=== PATIENT | female | born 1990 | race Caucasian/White ===

== ENCOUNTER 2017-04-28 08:49 | Emergency (ER) | payer MEDICAID ==
[~2017-04-28] VITALS: Ht 154.9 cm; Wt 95.0 kg
[~2017-04-28 08:49] MED LIST: ACET-1600 PO; CIPR500T3 PO; DIPH25CA61 PO; HYDR2TAB40 PO; IBUP800T PO; METF500T4 PO; NAPR220C2 PO; NONE PER PT; OMEP40CA6 PO; OXYC-302 PO; PANT20TA2 PO; POLY17PO5 PO; PREN1TAB60 PO; PROM25TA10 PO; TRAM50TA2 PO; VENL75TA PO
[2017-04-28] MEDS ORDERED: KETOROLAC 30 MG/1 ML IM ONE (10:00)
[2017-04-28] MEDS ORDERED: OXYcodone/APAP 5/325MG TABLET PO ONE (10:00)
[2017-04-28] MEDS ORDERED: DIAZEPAM 5 MG TABLET PO ONE (10:00)
[2017-04-28] MEDS ORDERED: KETOROLAC 30 MG/1 ML ONE (10:19)
[2017-04-28] MEDS ORDERED: DIAZEPAM 5 MG TABLET ONE (10:19)
[2017-04-28] MEDS ORDERED: OXYcodone/APAP 5/325MG TABLET ONE (10:19)
[2017-04-28 10:44] VITALS: BP 114/69
== END 2017-04-28 11:23 | disposition home or self-care (01) ==
LOC: ED 11:03
DX: M54.12 Radiculopathy, cervical region (principal)
CPT/HCPCS: 72125; 96372; 99284; J1885

== ENCOUNTER 2018-06-09 16:44 | Emergency (ER) | payer MEDICAID ==
[~2018-06-09] VITALS: Ht 154.9 cm; Wt 82.2 kg
[~2018-06-09 16:44] MED LIST changes: +IBUP-1223 PO; -IBUP800T PO; +METF500T17 PO; -METF500T4 PO
[2018-06-09] MEDS ORDERED: SODIUM CHLORIDE 0.9% 1,000ML IVBOLUS ONE (17:00)
[2018-06-09] MEDS ORDERED: SODIUM CHLORIDE FLUSH 10ML SYR IVF ONE (17:00)
[2018-06-09] MEDS ORDERED: BUTA-177 PO (17:00)
[2018-06-09] MEDS ORDERED: CHOL500015 PO (17:00)
[2018-06-09] MEDS ORDERED: ONDANSETRON ODT 4 MG PO ONE (17:00)
[2018-06-09] MEDS ORDERED: SUMA100T4 PO (17:00)
[2018-06-09] MEDS ORDERED: ACETAMINOPHEN 325 MG TABLET PO ONE (17:00)
[2018-06-09] MEDS ORDERED: KETOROLAC 30 MG/1 ML IVPush ONE (17:00)
[2018-06-09] MEDS ORDERED: DIPHENHYDRAMINE 50 MG/ML, 1ML IVPush ONE (17:00)
[2018-06-09] MEDS ORDERED: PROP20TA PO (17:00)
[2018-06-09] MEDS ORDERED: DIPHENHYDRAMINE 50 MG/ML, 1ML ONE (17:23)
[2018-06-09] MEDS ORDERED: METOCLOPRAMIDE 5 MG/ML, 2ML ONE (17:24)
[2018-06-09] MEDS ORDERED: KETOROLAC 30 MG/1 ML ONE (17:24)
[2018-06-09] MEDS ORDERED: METOCLOPRAMIDE 5 MG/ML, 2ML IVPush ONE (17:30)
[2018-06-09] MEDS ORDERED: DEXAMETHASONE 4 MG/ML, 1ML IVPush ONE (17:30)
[2018-06-09 18:12] VITALS: BP 101/54
[2018-06-09] MEDS ORDERED: DEXAMETHASONE 4 MG/ML, 1ML ONE (18:14)
[2018-06-09] MEDS ORDERED: ACETAMINOPHEN 325 MG TABLET ONE (18:14)
== END 2018-06-09 18:38 | disposition home or self-care (01) ==
LOC: ED 18:20
DX: G43.001 Migraine without aura, not intractable, with status migrainosus (principal); R11.2 Nausea with vomiting, unspecified; Z98.51 Tubal ligation status; Z90.49 Acquired absence of other specified parts of digestive tract; Z88.5 Allergy status to narcotic agent
CPT/HCPCS: 96361; 96374; 96375; 99284; J1100; J1200; J1885; J2765; J7030

== ENCOUNTER 2019-01-24 03:51 | Emergency (ER) | payer MEDICAID ==
[~2019-01-24] VITALS: Ht 154.9 cm; Wt 64.5 kg
[~2019-01-24 03:51] MED LIST changes: +BUTA-177 PO; +CHOL500015 PO; +PROP20TA PO; +SUMA100T4 PO
[2019-01-24 04:30] LABS: CULTURE INDICATED? NO; MICROSCOPIC AUTO
[2019-01-24] MEDS ORDERED: PHENAZOPYRIDINE 200 MG TABLET PO ONE (04:30)
[2019-01-24] MEDS ORDERED: KETOROLAC 30 MG/1 ML IM ONE (04:30)
[2019-01-24] MEDS ORDERED: PHENAZOPYRIDINE 200 MG TABLET ONE (04:31)
[2019-01-24] MEDS ORDERED: KETOROLAC 30 MG/1 ML ONE (04:31)
--- NOTE | 2019-01-24 04:40 | NUR ---
assessment made. seen by DEVYN. IV placed. blood drawn, urine sample obtained and sent to lab. medicated for pain.
--- NOTE | 2019-01-24 04:40 | NUR ---
bedside commode provided. urinary frequency noted.
[2019-01-24 04:41] LABS: BASOPHILS # (AUTO) 0.01 x10^3/uL (0-0.1); BASOPHILS % (AUTO) 0 % (0-1); EOSINOPHILS # (AUTO) 0.01 x10^3/uL (0-0.4); EOSINOPHILS % (AUTO) 0 % (1-7); LYMPHOCYTES # (AUTO) 0.79 x10^3/uL (1-3.4); LYMPHOCYTES % (AUTO) 9 % (22-44); MD NO; MEAN CORPUSCULAR HEMOGLOBIN 31.4 pg (27.0-34.8); MEAN CORPUSCULAR HGB CONC 32.9 g/dL (32.4-35.8); MEAN CORPUSCULAR VOLUME 95.4 fL (80-100); MEAN PLATELET VOLUME 10.3 fL (7.4-10.4); MONOCYTES # (AUTO) 0.27 x10^3/uL (0.2-0.8); MONOCYTES % (AUTO) 3 % (2-9); NEUTROPHILS # (AUTO) 7.57 x10^3/uL (1.8-6.8); NEUTROPHILS % (AUTO) 88 % (42-75); PLATELET COUNT 162 x10^3/uL (130-400); RED BLOOD COUNT 4.46 x10^6/uL (3.82-5.3); RED CELL DISTRIBUTION WIDTH 13.9 % (9.6-15.2)
[2019-01-24 04:50] LABS: ALBUMIN 3.9 g/dL (3.4-5.0); ANION GAP 7 mmol/L (5-15); CALCIUM 8.2 mg/dL (8.5-10.1); CHLORIDE 117 mmol/L (98-107)
[2019-01-24 04:54] LABS: ALANINE AMINOTRANSFERASE 141 U/L (12-78); ALKALINE PHOSPHATASE 129 U/L (45-117); BILIRUBIN,TOTAL 0.3 mg/dL (0.2-1.0); CREATININE 0.79 mg/dL (0.55-1.02); TOTAL PROTEIN 7.2 g/dL (6.4-8.2)
--- NOTE | 2019-01-24 05:07 | NUR ---
patient still in pain, in position in gurney.
[2019-01-24] MEDS ORDERED: HYDROmorphone 2 MG/ML, 1ML ONE (05:11)
--- NOTE | 2019-01-24 05:14 | NUR ---
re-medicated for pain. patient to CT scan.
[2019-01-24] MEDS ORDERED: OMNIPAQUE 350 MG/ML, 100ML BOTTLE ONE (05:28)
[2019-01-24] MEDS ORDERED: HYDROmorphone 2 MG/ML, 1ML IVPush PRN (05:30)
[2019-01-24] MEDS ORDERED: ONDANSETRON 2MG/ML, 2ML IVPush ONE (05:30)
--- NOTE | 2019-01-24 05:30 | NUR ---
back from CT scan. awaiting result.
--- NOTE | 2019-01-24 05:52 | NUR ---
patient sleeping at this time.
--- NOTE | 2019-01-24 06:45 | NUR ---
ERP at bedside for re-evaluation.
[2019-01-24 07:07] VITALS: BP 103/66
== END 2019-01-24 07:18 | disposition home or self-care (01) ==
LOC: ED 06:50
DX: R10.30 Lower abdominal pain, unspecified (principal); G43.909 Migraine, unspecified, not intractable, without status migrainosus
CPT/HCPCS: 36415; 74177; 80053; 81001; 85025; 96372; 96374; 99284; J1170; J1885; Q9967

== ENCOUNTER 2019-02-04 16:07 | Emergency (ER) | payer MEDICAID ==
[~2019-02-04] VITALS: Ht 154.9 cm; Wt 64.5 kg
[2019-02-04] MEDS ORDERED: CITA10TA8 PO (16:17)
[2019-02-04] MEDS ORDERED: TAMS-11 PO (16:17)
--- NOTE | 2019-02-04 16:18 | NUR ---
PATIENT BIB [facility] FROM [facility] AFTER PROCEDURE FOR INJECTIONS FOR MUSCLE SPASMS (THORACIC TRIGGER POINT INJECTIONS), PATIENT STARTED HAVING SOB AND RT SIDED CP UNDER RT BREAST RADIATING TO BACK, FENTANYL AND ZOFRAN GIVEN EN ROUTE, SEEING UROLOGIST FOR URINARY RETENTION, SELF CATHS PER EMS. IS ANALYST ON PATIENT, AWAITING MD ORDERS, CALL LIGHT WITHIN REACH.
--- NOTE | 2019-02-04 16:21 | NUR ---
PATIENT TO XRAY VIA NADN. Vladimir [id number].
[2019-02-04 17:11] VITALS: BP 106/67
--- NOTE | 2019-02-04 17:11 | NUR ---
Patient/Caregiver given discharge instructions and they have confirmed that they understand the instructions. Patient ambulatory with steady gait.
== END 2019-02-04 17:14 | disposition home or self-care (01) ==
LOC: ED 17:03
DX: R07.89 Other chest pain (principal)
CPT/HCPCS: 71046; 93005; 99283

== ENCOUNTER 2020-06-22 10:08 | Emergency (ER) | payer MEDICAID ==
[~2020-06-22] VITALS: Ht 154.9 cm; Wt 55.4 kg
[~2020-06-22 10:08] MED LIST changes: +CITA10TA8 PO; +OMEP40CA42 PO; -OMEP40CA6 PO; +ONDA4VIA60 PO; +SULF1TAB23 PO; +TAMS-11 PO
[2020-06-22] MEDS ORDERED: DIPHENHYDRAMINE 50 MG/ML, 1ML IVPush ONE (10:30)
[2020-06-22] MEDS ORDERED: SODIUM CHLORIDE 0.9% 1,000 ML IV ONE (10:30)
[2020-06-22] MEDS ORDERED: PROCHLORPERAZINE 5 MG/ML, 2ML IVPush ONE (10:30)
[2020-06-22] MEDS ORDERED: DIPHENHYDRAMINE 50 MG/ML, 1ML ONE (10:40)
[2020-06-22] MEDS ORDERED: PROCHLORPERAZINE 5 MG/ML, 2ML ONE (10:40)
[2020-06-22 10:55] LABS: BASOPHILS % (AUTO) 1 % (0-1); EOSINOPHILS % (AUTO) 1 % (1-7); LYMPHOCYTES % (AUTO) 19 % (22-44); MD NO; MEAN CORPUSCULAR HEMOGLOBIN 31.5 pg (27.0-34.8); MEAN CORPUSCULAR HGB CONC 32.8 g/dL (32.4-35.8); MONOCYTES % (AUTO) 6 % (2-9); NEUTROPHILS % (AUTO) 74 % (42-75); PLATELET COUNT 187 x10^3/uL (130-400); RED BLOOD COUNT 4.45 x10^6/uL (3.82-5.3); RED CELL DISTRIBUTION WIDTH 13.1 % (9.6-15.2)
[2020-06-22 11:05] LABS: ALBUMIN 3.5 g/dL (3.4-5.0); ANION GAP 4 mmol/L (5-15); CALCIUM 8.6 mg/dL (8.5-10.1); CHLORIDE 116 mmol/L (98-107); CREATININE 0.77 mg/dL (0.55-1.02)
--- NOTE | 2020-06-22 11:09 | NUR ---
RECEIVED REPORT FROM FRANK WILKINS. ASSUMING CARE AT THIS TIME. PT AT CT.
--- NOTE | 2020-06-22 11:09 | NUR ---
PT CAME IN BECAUSE SHE WAS HAVING A MIGRAINE MURRAY WHEN "I MUST HAVE SLIPPED AND FALLEN DOWN THE STAIRS. I DONT EXCATLY REMEMBER WHAT HAPPENED. I WOKE UP AND MY BROTHER WAS STANDING OVER ME." PT CO OF MURRAY AND NECK PAIN. DENIES BLOOD THINNERS. IV FLUIDS INFUSING. PT MEDICATED PER MAR. PT TO CT AT THIS TIME
--- NOTE | 2020-06-22 11:36 | NUR ---
ALL RESULTS ARE BACK AT THIS TIME. CHART UP FOR RECHECK.
[2020-06-22 11:38] VITALS: BP 94/55
== END 2020-06-22 12:25 | disposition home or self-care (01) ==
LOC: ED 10:34
DX: G43.109 Migraine with aura, not intractable, without status migrainosus (principal); R55 Syncope and collapse; I51.7 Cardiomegaly
CPT/HCPCS: 36415; 70450; 80048; 82040; 85025; 93005; 96361; 96374; 96375; 99285; J0780; J1200; J7030

== ENCOUNTER 2020-10-03 21:38 | Inpatient (IN) | payer MEDICAID ==
[~2020-10-03] VITALS: Ht 152.4 cm; Wt 56.9 kg
[~2020-10-03 21:38] MED LIST changes: -OXYC-302 PO; +OXYC1TAB14 PO
[2020-10-03] MEDS ORDERED: ONDANSETRON 2MG/ML, 2ML ONE (22:27)
[2020-10-03] MEDS ORDERED: HYDROmorphone 1 MG/ML, 1ML INJ ONE ×2 (22:27→23:30)
[2020-10-03] MEDS ORDERED: SODIUM CHLORIDE FLUSH 10ML SYR IVF ONE (22:30)
[2020-10-03] MEDS ORDERED: SODIUM CHLORIDE 0.9% 1,000ML IVBOLUS ONE (22:30)
[2020-10-03] MEDS ORDERED: ONDANSETRON 2MG/ML, 2ML IVPush ONE (22:30)
[2020-10-03 22:33] LABS: BASOPHILS % (AUTO) 1 % (0-1); EOSINOPHILS % (AUTO) 1 % (1-7); LYMPHOCYTES % (AUTO) 41 % (22-44); MEAN CORPUSCULAR HEMOGLOBIN 32.1 pg (27.0-34.8); MEAN CORPUSCULAR HGB CONC 33.7 g/dL (32.4-35.8); MEAN PLATELET VOLUME 9.2 fL (7.4-10.4); MONOCYTES % (AUTO) 8 % (2-9); NEUTROPHILS % (AUTO) 50 % (42-75); PLATELET COUNT 145 x10^3/uL (130-400); RED BLOOD COUNT 4.23 x10^6/uL (3.82-5.3); RED CELL DISTRIBUTION WIDTH 12.4 % (9.6-15.2)
[2020-10-03 22:40] LABS: MD NO
[2020-10-03 22:42] LABS: ALANINE AMINOTRANSFERASE 63 U/L (12-78); ALBUMIN 3.5 g/dL (3.4-5.0); ANION GAP 2 mmol/L (5-15); CHLORIDE 116 mmol/L (98-107); CREATININE 0.73 mg/dL (0.55-1.02)
[2020-10-03] MEDS: HYDROmorphone 1 MG/ML, 1ML INJ IVPush PRN ×2 (22:43→23:35)
[2020-10-03 22:47] LABS: ALKALINE PHOSPHATASE 124 U/L (45-117); BILIRUBIN,TOTAL 0.4 mg/dL (0.2-1.0); TOTAL PROTEIN 6.7 g/dL (6.4-8.2)
[2020-10-03] MEDS ORDERED: OMNIPAQUE 350 MG/ML, 100ML BOTTLE ONE (23:45)
[2020-10-03] MEDS ORDERED: DIPHENHYDRAMINE 50 MG/ML, 1ML ONE (23:51)
--- NOTE | 2020-10-04 00:06 | NUR ---
Pt reports feeling itchy after IV contrast administration. Pt also has hives and rashes around chest area. pt denies any SOB or throat swelling. Lungs bilaterally clear. Benedryl administered.
[2020-10-04 00:20] LABS: MICROSCOPIC NOT IND
[2020-10-04] MEDS ORDERED: DIPHENHYDRAMINE 50 MG/ML, 1ML IVPush ONE ×4 (00:30→08:30)
[2020-10-04] MEDS ORDERED: ASA/APAP/ CAFFEINE TABLET PO PRN (01:30)
[2020-10-04] MEDS ORDERED: ENALAPRILAT 1.25 MG/ML, 2ML IVPush PRN (01:30)
[2020-10-04] MEDS ORDERED: DIPHENHYDRAMINE 50 MG/ML, 1ML ONE (01:58)
[2020-10-04] MEDS: HYDROmorphone 2 MG/ML, 1ML IVPush PRN ×9 (02:22→21:34)
[2020-10-04] MEDS: LORazepam 2 MG/ML, 1ML IVPush PRN (02:24)
[2020-10-04] MEDS: ENOXAPARIN 40 MG/0.4 ML SQ SCH (02:24)
[2020-10-04] MEDS: D5%-0.45NACL+KCL 20MEQ 1,000 ML IV SCH ×2 (02:42→13:08)
[2020-10-04] MEDS: ONDANSETRON 2MG/ML, 2ML IVPush PRN (02:54)
[2020-10-04 02:59] VITALS: BP 115/76
[2020-10-04 07:45] VITALS: BP 102/66
[2020-10-04] MEDS: FAMOTIDINE 20 MG/2 ML IVPush SCH ×2 (08:28→21:18)
[2020-10-04 10:45] LABS: BASOPHILS % (AUTO) 0 % (0-1); EOSINOPHILS % (AUTO) 1 % (1-7); LYMPHOCYTES % (AUTO) 19 % (22-44); MEAN CORPUSCULAR HEMOGLOBIN 32.1 pg (27.0-34.8); MEAN CORPUSCULAR HGB CONC 33.5 g/dL (32.4-35.8); MEAN PLATELET VOLUME 8.8 fL (7.4-10.4); MONOCYTES % (AUTO) 8 % (2-9); NEUTROPHILS % (AUTO) 72 % (42-75); PLATELET COUNT 135 x10^3/uL (130-400); RED BLOOD COUNT 3.99 x10^6/uL (3.82-5.3); RED CELL DISTRIBUTION WIDTH 12.8 % (9.6-15.2)
[2020-10-04 10:50] LABS: MD NO
[2020-10-04 10:55] LABS: ALBUMIN 3.2 g/dL (3.4-5.0); ANION GAP 4 mmol/L (5-15); CALCIUM 7.6 mg/dL (8.5-10.1); CHLORIDE 112 mmol/L (98-107)
[2020-10-04 11:00] LABS: ALANINE AMINOTRANSFERASE 406 U/L (12-78); ALKALINE PHOSPHATASE 278 U/L (45-117); BILIRUBIN,TOTAL 0.8 mg/dL (0.2-1.0); TOTAL PROTEIN 5.9 g/dL (6.4-8.2)
[2020-10-04] MEDS: METOCLOPRAMIDE 5 MG/ML, 2ML IVPush PRN ×2 (13:08→21:29)
[2020-10-04 13:16] VITALS: BP 102/64
[2020-10-04 19:21] VITALS: BP 112/75
[2020-10-05] MEDS: LORazepam 2 MG/ML, 1ML IVPush PRN ×2 (00:22→20:41)
[2020-10-05] MEDS: D5%-0.45NACL+KCL 20MEQ 1,000 ML IV SCH ×2 (00:22→11:15)
[2020-10-05 00:40] VITALS: BP 118/81
[2020-10-05] MEDS: ENOXAPARIN 40 MG/0.4 ML SQ SCH (02:34)
[2020-10-05] MEDS: HYDROmorphone 2 MG/ML, 1ML IVPush PRN ×6 (02:53→23:18)
[2020-10-05 06:51] LABS: BASOPHILS % (AUTO) 1 % (0-1); EOSINOPHILS % (AUTO) 4 % (1-7); LYMPHOCYTES % (AUTO) 26 % (22-44); MEAN CORPUSCULAR HEMOGLOBIN 32.2 pg (27.0-34.8); MEAN CORPUSCULAR HGB CONC 33.4 g/dL (32.4-35.8); MEAN PLATELET VOLUME 8.9 fL (7.4-10.4); MONOCYTES % (AUTO) 7 % (2-9); NEUTROPHILS % (AUTO) 63 % (42-75); PLATELET COUNT 129 x10^3/uL (130-400); RED BLOOD COUNT 3.98 x10^6/uL (3.82-5.3); RED CELL DISTRIBUTION WIDTH 12.5 % (9.6-15.2)
[2020-10-05 06:53] LABS: MD NO
[2020-10-05 07:02] LABS: ALBUMIN 2.9 g/dL (3.4-5.0); ANION GAP 2 mmol/L (5-15); CALCIUM 7.8 mg/dL (8.5-10.1); CHLORIDE 111 mmol/L (98-107)
[2020-10-05 07:06] LABS: ALANINE AMINOTRANSFERASE 306 U/L (12-78); ALKALINE PHOSPHATASE 269 U/L (45-117); BILIRUBIN,TOTAL 0.6 mg/dL (0.2-1.0); CREATININE 0.75 mg/dL (0.55-1.02); TOTAL PROTEIN 5.6 g/dL (6.4-8.2)
[2020-10-05 07:16] VITALS: BP 121/85
[2020-10-05] MEDS: FAMOTIDINE 20 MG/2 ML IVPush SCH ×2 (07:39→20:42)
[2020-10-05] MEDS: ONDANSETRON 2MG/ML, 2ML IVPush PRN (10:51)
[2020-10-05] MEDS ORDERED: DIPHENHYDRAMINE 50 MG/ML, 1ML IVPush PRN (12:00)
[2020-10-05 12:54] VITALS: BP 109/73
[2020-10-05] MEDS: METOCLOPRAMIDE 5 MG/ML, 2ML IVPush PRN ×2 (13:24→20:42)
[2020-10-05 18:29] VITALS: BP 108/73
[2020-10-06 00:59] VITALS: BP 95/63
[2020-10-06] MEDS: D5%-0.45NACL+KCL 20MEQ 1,000 ML IV SCH (02:14)
[2020-10-06] MEDS: HYDROmorphone 2 MG/ML, 1ML IVPush PRN (03:27)
[2020-10-06] MEDS: ENOXAPARIN 40 MG/0.4 ML SQ SCH (05:30)
[2020-10-06 07:10] LABS: BASOPHILS % (AUTO) 1 % (0-1); EOSINOPHILS % (AUTO) 4 % (1-7); LYMPHOCYTES % (AUTO) 23 % (22-44); MEAN CORPUSCULAR HEMOGLOBIN 32.4 pg (27.0-34.8); MEAN CORPUSCULAR HGB CONC 33.8 g/dL (32.4-35.8); MONOCYTES % (AUTO) 7 % (2-9); NEUTROPHILS % (AUTO) 66 % (42-75); PLATELET COUNT 137 x10^3/uL (130-400); RED BLOOD COUNT 4.19 x10^6/uL (3.82-5.3); RED CELL DISTRIBUTION WIDTH 12.5 % (9.6-15.2)
[2020-10-06 07:11] LABS: MD NO
[2020-10-06 07:12] LABS: ANION GAP 5 mmol/L (5-15); CALCIUM 8.5 mg/dL (8.5-10.1); CHLORIDE 109 mmol/L (98-107); CREATININE 0.61 mg/dL (0.55-1.02)
[2020-10-06] MEDS ORDERED: OXYcodone/APAP 5/325MG TABLET PO PRN (08:00)
[2020-10-06] MEDS: FAMOTIDINE 20 MG/2 ML IVPush SCH (08:06)
[2020-10-06 08:52] VITALS: BP 109/73
[2020-10-06] MEDS ORDERED: OXYC1TAB14 PO (09:48)
== END 2020-10-06 11:40 | disposition home or self-care (01) | DRG 392 ==
LOC: ED 23:01 → EDIP 10-04 01:18 → 3N 10-04 02:15 → DCLOUNGE 10-06 11:34
PROVIDERS: ADMIT Family Medicine; ATTEND Family Medicine
DX: K52.9 Noninfective gastroenteritis and colitis, unspecified (principal); E46 Unspecified protein-calorie malnutrition; K56.7 Ileus, unspecified; N39.0 Urinary tract infection, site not specified; G43.909 Migraine, unspecified, not intractable, without status migrainosus; E86.0 Dehydration; E83.51 Hypocalcemia; E10.9 Type 1 diabetes mellitus without complications; Z80.0 Family history of malignant neoplasm of digestive organs; Z82.49 Family history of ischemic heart disease and other diseases of the circulatory system; F41.9 Anxiety disorder, unspecified; L29.9 Pruritus, unspecified; Z90.49 Acquired absence of other specified parts of digestive tract; Z90.711 Acquired absence of uterus with remaining cervical stump; Z98.84 Bariatric surgery status; Z88.8 Allergy status to other drugs, medicaments and biological substances; Z88.6 Allergy status to analgesic agent; Z91.041 Radiographic dye allergy status; Z68.24 Body mass index [BMI] 24.0-24.9, adult
CPT/HCPCS: 36415; 74018; 74177; 76700; 80048; 80053; 81003; 82150; 82330; 83605; 83690; 84703; 85025; 86140; 99285; G0378; J1170; J1650; J2405; Q9967; J1200; J2060; J2765; J3480; J7030

== ENCOUNTER 2020-10-17 08:31 | Emergency (ER) | payer MEDICAID ==
[~2020-10-17] VITALS: Ht 154.9 cm; Wt 54.6 kg
[~2020-10-17 08:31] MED LIST changes: -CIPR500T3 PO; +CIPR500T4 PO
[2020-10-17] MEDS ORDERED: ONDANSETRON 2MG/ML, 2ML IVPush ONE (09:00)
[2020-10-17] MEDS ORDERED: FENTANYL PF 100 MCG/2ML IV ONE (09:00)
[2020-10-17] MEDS ORDERED: SODIUM CHLORIDE FLUSH 10ML SYR IVF ONE (09:00)
[2020-10-17] MEDS ORDERED: ONDANSETRON 2MG/ML, 2ML ONE (09:05)
[2020-10-17] MEDS ORDERED: FENTANYL PF 100 MCG/2ML ONE (09:05)
--- NOTE | 2020-10-17 09:13 | NUR ---
Pt states she has spasmotic pain in her abd. Followed up with her PCP after d/c from the hospital for bowel obstruction 2 weeks ago and was told to come to the ER. On her last visit she was informed that if she had another bowel obsturction she would need sx to "remove the scar tissue." Pt has been NPO since midnight. Pt medicated to MAR, unfamilliar with Fentynal, asked about Dilaudid, educated about Fentynal and informed of current orders. Pt to imaging now.
[2020-10-17 09:25] LABS: BASOPHILS % (AUTO) 1 % (0-1); EOSINOPHILS % (AUTO) 1 % (1-7); LYMPHOCYTES % (AUTO) 18 % (22-44); MEAN CORPUSCULAR HGB CONC 33.3 g/dL (32.4-35.8); MEAN PLATELET VOLUME 9.2 fL (7.4-10.4); MONOCYTES % (AUTO) 7 % (2-9); NEUTROPHILS % (AUTO) 72 % (42-75); PLATELET COUNT 160 x10^3/uL (130-400); RED BLOOD COUNT 4.27 x10^6/uL (3.82-5.3); RED CELL DISTRIBUTION WIDTH 12.7 % (9.6-15.2)
[2020-10-17 09:26] LABS: ALANINE AMINOTRANSFERASE 87 U/L (12-78); ALBUMIN 3.5 g/dL (3.4-5.0); ANION GAP 5 mmol/L (5-15); CALCIUM 7.9 mg/dL (8.5-10.1); CHLORIDE 115 mmol/L (98-107); CREATININE 0.84 mg/dL (0.55-1.02)
[2020-10-17 09:28] LABS: ALKALINE PHOSPHATASE 196 U/L (45-117); BILIRUBIN,TOTAL 0.3 mg/dL (0.2-1.0); MD NO; TOTAL PROTEIN 6.3 g/dL (6.4-8.2)
[2020-10-17] MEDS ORDERED: DIPHENHYDRAMINE 50 MG/ML, 1ML ONE (10:21)
[2020-10-17] MEDS ORDERED: DIPHENHYDRAMINE 50 MG/ML, 1ML IVPush ONE (10:30)
--- NOTE | 2020-10-17 10:33 | NUR ---
Pt to CT.
[2020-10-17 10:40] LABS: MICROSCOPIC INDICATED
[2020-10-17] MEDS ORDERED: OMNIPAQUE 350 MG/ML, 100ML BOTTLE ONE (10:51)
--- NOTE | 2020-10-17 11:13 | NUR ---
Pt has been passing gas. Pt sleeping, visible chest rise and fall.
[2020-10-17 12:40] VITALS: BP 128/78
== END 2020-10-17 12:42 | disposition home or self-care (01) ==
LOC: ED 10:09
DX: K59.00 Constipation, unspecified (principal); R10.84 Generalized abdominal pain; R11.2 Nausea with vomiting, unspecified
CPT/HCPCS: 36415; 74022; 74177; 80053; 81001; 83690; 85025; 96374; 96375; 99285; J1200; J2405; J3010; Q9967

== ENCOUNTER 2020-11-10 14:18 | Emergency (ER) | payer MEDICAID ==
[~2020-11-10] VITALS: Ht 165.1 cm; Wt 55.7 kg
--- NOTE | 2020-11-10 14:25 | NUR ---
PT WHEELED FROM TRIAGE TO ROOM AT THIS TIME.
[2020-11-10 15:53] LABS: BASOPHILS % (AUTO) 1 % (0-1); EOSINOPHILS % (AUTO) 1 % (1-7); LYMPHOCYTES % (AUTO) 25 % (22-44); MEAN CORPUSCULAR HGB CONC 33.6 g/dL (32.4-35.8); MEAN PLATELET VOLUME 9.6 fL (7.4-10.4); MONOCYTES % (AUTO) 5 % (2-9); NEUTROPHILS % (AUTO) 69 % (42-75); PLATELET COUNT 158 x10^3/uL (130-400); RED BLOOD COUNT 4.75 x10^6/uL (3.82-5.3); RED CELL DISTRIBUTION WIDTH 12.8 % (9.6-15.2)
[2020-11-10 15:57] LABS: MD NO
[2020-11-10 16:00] LABS: ALANINE AMINOTRANSFERASE 119 U/L (12-78); ANION GAP 5 mmol/L (5-15); CALCIUM 8.4 mg/dL (8.5-10.1); CHLORIDE 117 mmol/L (98-107); CREATININE 0.77 mg/dL (0.55-1.02)
[2020-11-10 16:03] LABS: ALKALINE PHOSPHATASE 134 U/L (45-117); BILIRUBIN,TOTAL 0.3 mg/dL (0.2-1.0); TOTAL PROTEIN 7.2 g/dL (6.4-8.2)
[2020-11-10] MEDS ORDERED: KETOROLAC 30 MG/1 ML ONE (16:45)
[2020-11-10] MEDS ORDERED: ONDANSETRON 2MG/ML, 2ML ONE (16:46)
[2020-11-10 16:55] LABS: MICROSCOPIC AUTO
[2020-11-10] MEDS ORDERED: ONDANSETRON 2MG/ML, 2ML IVPush ONE (17:00)
[2020-11-10] MEDS ORDERED: KETOROLAC 30 MG/1 ML IVPush ONE (17:00)
--- NOTE | 2020-11-10 18:50 | NUR ---
report from brandon núñez, pt care transferred at this time
[2020-11-10 19:16] VITALS: BP 119/63
--- NOTE | 2020-11-10 19:17 | NUR ---
Patient given discharge instructions and they have confirmed that they understand the instructions. Patient ambulatory with steady gait. nad, all questions answered appropriately, denies additional needs, pt instructed on urinary cath care and provided leg bags and fresh urine bag. no personal belongings left in room after dc.
== END 2020-11-10 19:34 | disposition home or self-care (01) ==
LOC: ED 15:12
DX: R10.84 Generalized abdominal pain (principal); R14.0 Abdominal distension (gaseous); K59.00 Constipation, unspecified; R33.9 Retention of urine, unspecified; R94.5 Abnormal results of liver function studies; Z90.49 Acquired absence of other specified parts of digestive tract; Z98.51 Tubal ligation status; Z90.710 Acquired absence of both cervix and uterus; Z88.5 Allergy status to narcotic agent; Z88.6 Allergy status to analgesic agent
CPT/HCPCS: 36415; 51702; 74021; 76770; 80053; 81001; 85025; 87077; 87086; 96374; 96375; 99285; J1885; J2405; 87186

== ENCOUNTER 2020-11-11 21:27 | Emergency (ER) | payer MEDICAID ==
[~2020-11-11] VITALS: Ht 157.5 cm; Wt 55.0 kg
--- NOTE | 2020-11-11 22:41 | NUR ---
ropeman: pt from lobby to room 14
[2020-11-11 23:03] LABS: MICROSCOPIC AUTO
[2020-11-11 23:28] LABS: ALANINE AMINOTRANSFERASE 92 U/L (12-78); ALBUMIN 3.7 g/dL (3.4-5.0); ANION GAP 5 mmol/L (5-15); CALCIUM 8.1 mg/dL (8.5-10.1); CHLORIDE 115 mmol/L (98-107)
[2020-11-11 23:30] LABS: ALKALINE PHOSPHATASE 128 U/L (45-117); BILIRUBIN,TOTAL 0.5 mg/dL (0.2-1.0); TOTAL PROTEIN 6.9 g/dL (6.4-8.2)
[2020-11-11 23:36] LABS: BASOPHILS % (AUTO) 0 % (0-1); EOSINOPHILS % (AUTO) 1 % (1-7); LYMPHOCYTES % (AUTO) 23 % (22-44); MEAN CORPUSCULAR HEMOGLOBIN 32.1 pg (27.0-34.8); MEAN CORPUSCULAR HGB CONC 33.1 g/dL (32.4-35.8); MEAN PLATELET VOLUME 9.2 fL (7.4-10.4); MONOCYTES % (AUTO) 6 % (2-9); NEUTROPHILS % (AUTO) 69 % (42-75); PLATELET COUNT 158 x10^3/uL (130-400); RED CELL DISTRIBUTION WIDTH 12.9 % (9.6-15.2)
[2020-11-11 23:37] LABS: CLOSTRIDIUM DIFFICILE ANTIGEN NEGATIVE; CLOSTRIDIUM DIFFICILE TOXIN NEGATIVE (Negative)
[2020-11-11 23:37] LABS: MD NO
--- NOTE | 2020-11-11 23:45 | NUR ---
bladder scan =[id number]
--- NOTE | 2020-11-11 23:46 | NUR ---
Pt calm in bed. Warm blanket given. Pt states no needs at this time.
[2020-11-12] MEDS ORDERED: PHENAZOPYRIDINE 200 MG TABLET PO ONE
[2020-11-12] MEDS ORDERED: CEFDINIR 300 MG CAPSULE PO ONE
[2020-11-12] MEDS ORDERED: CEFDINIR 300 MG CAPSULE ONE (00:06)
[2020-11-12] MEDS ORDERED: PHENAZOPYRIDINE 200 MG TABLET ONE (00:06)
[2020-11-12 00:08] VITALS: BP 117/74
== END 2020-11-12 00:13 | disposition home or self-care (01) ==
LOC: ED 23:55
DX: N30.01 Acute cystitis with hematuria (principal); R30.0 Dysuria; R10.30 Lower abdominal pain, unspecified; G43.909 Migraine, unspecified, not intractable, without status migrainosus; Z90.49 Acquired absence of other specified parts of digestive tract; Z98.51 Tubal ligation status; Z90.710 Acquired absence of both cervix and uterus
CPT/HCPCS: 36415; 80053; 81001; 83690; 85025; 87077; 87086; 87186; 87324; 89055; 99284

== ENCOUNTER 2020-11-30 19:20 | Emergency (ER) | payer MEDICAID ==
[~2020-11-30] VITALS: Ht 154.9 cm; Wt 56.4 kg
--- NOTE | 2020-11-30 20:00 | NUR ---
patient resting in bed with distended abdomen. VS remain stable on RA. patient states that she is not able to urinate on her own and would need to straight cath. call colunga in reach. safety maintained. Jihan SHEPARD at bedside
--- NOTE | 2020-11-30 20:47 | NUR ---
patient provided straight cath supplies as she opted to straight cath herself for UA sample. steady gait to bathroom. sterile gloves in patient's sive provided as the gloves in kit are too large.
[2020-11-30 20:53] LABS: BASOPHILS % (AUTO) 1 % (0-1); EOSINOPHILS % (AUTO) 1 % (1-7); LYMPHOCYTES % (AUTO) 25 % (22-44); MD NO; MEAN CORPUSCULAR HEMOGLOBIN 32.6 pg (27.0-34.8); MEAN CORPUSCULAR HGB CONC 33.9 g/dL (32.4-35.8); MEAN PLATELET VOLUME 8.9 fL (7.4-10.4); MONOCYTES % (AUTO) 8 % (2-9); NEUTROPHILS % (AUTO) 66 % (42-75); PLATELET COUNT 161 x10^3/uL (130-400); RED BLOOD COUNT 4.11 x10^6/uL (3.82-5.3); RED CELL DISTRIBUTION WIDTH 12.8 % (9.6-15.2)
[2020-11-30 20:58] LABS: ALANINE AMINOTRANSFERASE 58 U/L (12-78); ALBUMIN 3.4 g/dL (3.4-5.0); ANION GAP 3 mmol/L (5-15); CHLORIDE 115 mmol/L (98-107); CREATININE 0.78 mg/dL (0.55-1.02)
[2020-11-30] MEDS ORDERED: SUMA50TA4 PO (21:00)
[2020-11-30] MEDS ORDERED: PHEN100T90 PO (21:00)
[2020-11-30] MEDS ORDERED: GALC120S IM (21:00)
[2020-11-30 21:01] LABS: ALKALINE PHOSPHATASE 111 U/L (45-117); BILIRUBIN,TOTAL 0.2 mg/dL (0.2-1.0); TOTAL PROTEIN 6.3 g/dL (6.4-8.2)
[2020-11-30] MEDS ORDERED: ONDANSETRON ODT 4 MG ONE (21:07)
[2020-11-30 21:16] LABS: MICROSCOPIC AUTO
[2020-11-30] MEDS ORDERED: ONDANSETRON ODT 4 MG PO ONE (21:30)
[2020-11-30 21:52] VITALS: BP_DIAS 81
--- NOTE | 2020-11-30 22:04 | NUR ---
patient states that nausea has decreased after zofran. will continue to monitor. Vs remain stable.
--- NOTE | 2020-11-30 23:04 | NUR ---
patient resting in bed, tearful. she declines any type of narcotics for pain management and unable to take NSAIDS due to gastric surgery. requested warm blanket to place on distended abdomen for non-pharm pain management. this was provided. call colunga in reach. safety maintained. VS remain stable
--- NOTE | 2020-11-30 23:09 | NUR ---
po challenge initiated
--- NOTE | 2020-11-30 23:49 | NUR ---
patient tolerated small amount of PO fluids but reports she is nauseous with this. patient states "ill just take some reglan and go home. im done with this. its a game they are playing". patient states that she does not want to stay in the hospital at this time.
--- NOTE | 2020-12-01 00:09 | NUR ---
patient continues to be tearful on RN entering room. discharge instructions reviewed with patient. no further questions. prescriptions handed directly to patient. steady gait to lobby. no IV placed during this ER visit. all personal belongings with patient on dc.
[2020-12-01 00:12] VITALS: BP_SYST 139
== END 2020-12-01 00:15 | disposition home or self-care (01) ==
LOC: ED 21:07
DX: N39.0 Urinary tract infection, site not specified (principal); K59.00 Constipation, unspecified; R50.9 Fever, unspecified; G89.29 Other chronic pain; R10.13 Epigastric pain; R00.0 Tachycardia, unspecified; R11.2 Nausea with vomiting, unspecified; G43.909 Migraine, unspecified, not intractable, without status migrainosus; Z90.49 Acquired absence of other specified parts of digestive tract; Z98.51 Tubal ligation status; Z90.710 Acquired absence of both cervix and uterus
CPT/HCPCS: 36415; 74021; 80053; 81001; 85025; 87077; 87086; 87186; 99284; Q0162

== ENCOUNTER 2020-12-20 06:29 | Day surgery (SDC) | payer MEDICAID ==
[~2020-12-20] VITALS: Ht 154.9 cm; Wt 54.1 kg
[~2020-12-20 06:29] MED LIST changes: +GALC120S IM; +PHEN100T90 PO; +SUMA50TA4 PO
[2020-12-20] MEDS ORDERED: NONE PER PT (06:49)
[2020-12-20 06:51] VITALS: BP 123/75
[2020-12-20] MEDS ORDERED: CHLORHEXIDINE 15 ML UDC PO ONE (07:00)
[2020-12-20] MEDS ORDERED: LACTATED RINGERS 1,000 ML IV SCH (07:00)
[2020-12-20] MEDS ORDERED: OMEP-110 PO (09:03)
== END 2020-12-20 10:30 | disposition home or self-care (01) ==
LOC: OUT 06:29
PROVIDERS: ATTEND Internal Medicine Gastroenterology
DX: R13.10 Dysphagia, unspecified (principal); K59.00 Constipation, unspecified; K64.1 Second degree hemorrhoids; K29.70 Gastritis, unspecified, without bleeding; Z20.822 Contact with and (suspected) exposure to COVID-19; Z88.5 Allergy status to narcotic agent
CPT/HCPCS: 43239; 43248; 45380; 88305; 88342; J7120; U0003

== ENCOUNTER 2021-01-27 12:13 | Emergency (ER) | payer MEDICAID, OTHER ==
[~2021-01-27] VITALS: Ht 154.9 cm; Wt 50.0 kg
[~2021-01-27 12:13] MED LIST changes: +OMEP-110 PO
[2021-01-27 12:59] LABS: BASOPHILS % (AUTO) 0 % (0-1); EOSINOPHILS % (AUTO) 1 % (1-7); LYMPHOCYTES % (AUTO) 16 % (22-44); MEAN CORPUSCULAR HEMOGLOBIN 32.3 pg (27.0-34.8); MEAN CORPUSCULAR HGB CONC 33.9 g/dL (32.4-35.8); MEAN PLATELET VOLUME 9.2 fL (7.4-10.4); MONOCYTES % (AUTO) 5 % (2-9); NEUTROPHILS % (AUTO) 78 % (42-75); PLATELET COUNT 169 x10^3/uL (130-400); RED CELL DISTRIBUTION WIDTH 11.9 % (9.6-15.2)
[2021-01-27] MEDS ORDERED: PINK LADY ENEMA 490 ML BOTTLE PR ONE (13:00)
[2021-01-27] MEDS ORDERED: ONDANSETRON 2MG/ML, 2ML IVPush ONE (13:00)
[2021-01-27] MEDS ORDERED: SODIUM CHLORIDE 0.9% 1,000ML IVBOLUS ONE (13:00)
[2021-01-27] MEDS ORDERED: SODIUM CHLORIDE FLUSH 10ML SYR IVF ONE (13:00)
[2021-01-27 13:02] LABS: MD NO
[2021-01-27] MEDS ORDERED: ONDANSETRON 2MG/ML, 2ML ONE (13:09)
[2021-01-27 13:12] LABS: ALANINE AMINOTRANSFERASE 50 U/L (12-78); ALBUMIN 3.6 g/dL (3.4-5.0); CALCIUM 8.5 mg/dL (8.5-10.1); CHLORIDE 108 mmol/L (98-107); CREATININE 0.95 mg/dL (0.55-1.02)
[2021-01-27 13:16] LABS: ALKALINE PHOSPHATASE 118 U/L (45-117); BILIRUBIN,TOTAL 0.5 mg/dL (0.2-1.0); TOTAL PROTEIN 6.6 g/dL (6.4-8.2)
[2021-01-27 13:21] LABS: ANION GAP 2 mmol/L (5-15)
--- NOTE | 2021-01-27 13:27 | NUR ---
PT UOB TO BATHROOM WITHOUT ASSISTANCE. UPON RETURN IV BOLUS STARTED AND MEDICATED WITH ZOFRAN NOTED ON MAR
--- NOTE | 2021-01-27 15:08 | NUR ---
NO BM. FEELS NAUSEATED, NOT FEELING WELL. UOB TO RESTROOM
[2021-01-27] MEDS ORDERED: GOLYTELY 4,000ML ORAL.SOL PO ONE (15:30)
[2021-01-27] MEDS ORDERED: METOCLOPRAMIDE 5 MG/ML, 2ML IVPush ONE (15:30)
[2021-01-27] MEDS ORDERED: DICYCLOMINE 20 MG TABLET PO ONE (15:30)
[2021-01-27] MEDS ORDERED: METOCLOPRAMIDE 5 MG/ML, 2ML ONE (15:33)
[2021-01-27] MEDS ORDERED: DICYCLOMINE 20 MG TABLET ONE (15:33)
[2021-01-27 16:10] VITALS: BP 104/66
--- NOTE | 2021-01-27 16:25 | NUR ---
PT DRINKING GOLYTELY, TOLERATING WELL
--- NOTE | 2021-01-27 17:11 | NUR ---
AFTER CONSUMING APPROXIMATELY 25 PERCENT OF GOLYTLEY, PT HAD A LARGE BM
== END 2021-01-27 17:32 | disposition home or self-care (01) ==
LOC: ED 12:43
DX: R10.84 Generalized abdominal pain (principal); K59.00 Constipation, unspecified; R11.0 Nausea; G89.29 Other chronic pain; G43.909 Migraine, unspecified, not intractable, without status migrainosus
CPT/HCPCS: 36415; 80053; 84703; 85025; 96361; 96374; 96375; 99284; J2405; J2765; J7030